=== PATIENT | female | born 1970 | race Caucasian/White ===

== ENCOUNTER 2021-02-01 12:11 | Emergency (ER) | payer MEDICAID ==
[~2021-02-01] VITALS: Ht 165.1 cm; Wt 68.0 kg
[2021-02-01] MEDS ORDERED: HYDROCODONE/ACETAMINOPHEN 5/325MG TABLET PO ONE (12:30)
[2021-02-01] MEDS ORDERED: HYDR-4346 MT (13:32)
[2021-02-01] MEDS ORDERED: IBUP-2029 MT (13:32)
[2021-02-01 14:10] VITALS: BP 114/72
== END 2021-02-01 14:11 | disposition home or self-care (01) ==
LOC: EDBD 12:11 → ER 12:11
DX: S22.32XA Fracture of one rib, left side, initial encounter for closed fracture (principal); Z98.890 Other specified postprocedural states; S22.31XA Fracture of one rib, right side, initial encounter for closed fracture; Y04.0XXA Assault by unarmed brawl or fight, initial encounter; Y93.89 Activity, other specified; Y92.89 Other specified places as the place of occurrence of the external cause; Y99.8 Other external cause status
CPT/HCPCS: 71111; 81025; 99283

== ENCOUNTER 2024-02-26 21:36 | Emergency (ER) | payer MEDICAID, OTHER ==
[~2024-02-26] VITALS: Ht 170.2 cm; Wt 59.0 kg
[~2024-02-26 21:36] MED LIST: HYDR-4346 MT; IBUP-2029 MT
[2024-02-26 22:03] VITALS: O2SAT 99
[2024-02-26 23:08] LABS: BASOPHILS % 0.5 % (0.0-2.0); EOSINOPHILS % 0.3 % (0.0-5.0); HEMATOCRIT. 31.7 % (36.0-48.0); HEMOGLOBIN. 10.5 g/dL (12.0-16.0); LYMPHOCYTES % 28.9 % (20.0-50.0); MEAN CORPUSCULAR HEMOGLOBIN 29.9 pg (28.0-32.0); MEAN CORPUSCULAR HGB CONC 33.1 g/dL (31.0-37.0); MEAN CORPUSCULAR VOLUME 90.4 fL (81.0-99.0); MEAN PLATELET VOLUME 9.2 fl (7.4-10.4); MONOCYTES % 7.9 % (2.0-8.0); NEUTROPHILS % 62.4 % (40.0-76.0); PLATELET 212 x1000/uL (130-400); RED BLOOD CELL COUNT 3.51 mill/uL (4.2-5.4); WHITE BLOOD COUNT 8.2 x1000/uL (4.5-11.0)
[2024-02-26 23:16] LABS: CARBON DIOXIDE 26 mEq/L (21-32); CHLORIDE 112 mEq/L (98-107); SODIUM 143 mEq/L (136-145)
[2024-02-26 23:17] LABS: CALCIUM 9.2 mg/dL (8.7-10.4)
[2024-02-26 23:21] LABS: CREATININE 0.7 mg/dL (0.6-1.0); GLUCOSE 106 mg/dL (70-105)
[2024-02-26 23:22] LABS: UREA NITROGEN BLOOD 17 mg/dL (9-23)
[2024-02-26 23:23] LABS: ALANINE AMINOTRANSFERASE 20 IU/L (10-49); ALBUMIN 4.1 g/dL (3.2-4.8); ASPARTATE AMINOTRANSFERASE 25 IU/L (<34)
[2024-02-26 23:24] LABS: BILIRUBIN TOTAL 0.3 mg/dL (0.1-1.0); PROTEIN TOTAL 6.5 g/dL (6.0-8.3)
[2024-02-26 23:35] LABS: TROPONIN I HIGH SENSITIVITY < 4 ng/L (3.0-34)
[2024-02-27] MEDS: POTASSIUM CHLORIDE 20MEQ/PACKET PO NR (02:45)
[2024-02-27 04:00] VITALS: BP 121/69; PULSE 84; RESP 20; TEMP 98.4
== END 2024-02-27 04:04 | disposition home or self-care (01) ==
LOC: ER 21:36
DX: R06.02 Shortness of breath (principal); Z98.890 Other specified postprocedural states
CPT/HCPCS: 36415; 71045; 80053; 84484; 85025; 99284